=== PATIENT | female | born 1955 | race Caucasian/White ===

== ENCOUNTER 2017-04-06 11:17 | Emergency (ER) | payer MEDICARE ==
[2017-04-06 11:17] VITALS: BMI 21.5
[2017-04-06 11:57] VITALS: PULSE 79; RESP 18; TEMP 98; O2SAT 100
[2017-04-06] MEDS ORDERED: RISPERIDONE IM ONE ×2 (12:02→12:15)
--- NOTE | 2017-04-06 13:09 | CARD ---
APPROVED REPORT EKG Measurement Heart [id number] <Conclusion> Normal sinus rhythm Normal ECG
--- NOTE | 2017-04-06 13:13 | ED PDOC ---
HPI: General Adult Time Seen by Provider: 04/06/17 11:54 Chief Complaint (Nursing): Med Refill Chief Complaint (Provider): medication adminstration History Per: Patient History/Exam Limitations: no limitations Additional Complaint(s): 62yo f in ED for 3rd and final administration of risperadal 25Mg IM. dose and administration confirmed with MD Clint prescribing provider. PT will continue uoutpt f.u Past Medical History Reviewed: Historical Data, Nursing Documentation, Vital Signs Vital Signs: Last Vital Signs Temp 98 F 04/06/17 11:45 Pulse 79 04/06/17 11:45 Resp 18 04/06/17 11:45 BP Pulse Ox 100 04/06/17 11:45 - Medical History PMH: Depression, Paranoia, Schizophrenia Denies: Diabetes, Hepatitis, HIV, HTN, Chronic Kidney Disease, Seizures, Sexually Transmitted Disease - Surgical History Surgical History: (x2) - Family History Family History: States: Unknown Family Hx - Immunization History Hx Tetanus Toxoid Vaccination: No Hx Influenza Vaccination: No Hx Pneumococcal Vaccination: No - Home Medications Home Medications: Ambulatory Orders Medication Instructions Recorded Benztropine [Cogentin] 0.5 mg PO HS 30 Days #30 tab 03/19/17 Divalproex [Depakote DR(*BID*)] 500 mg PO BID 30 Days #60 tcp 03/19/17 Zolpidem [Ambien] 5 mg PO HS PRN #30 tab 03/19/17 risperiDONE [RisperDAL Tab] 3 mg PO HS 30 Days #30 tab 03/19/17 - Allergies Allergies/Adverse Reactions: Allergies Allergy/AdvReac Type Severity Reaction Status Date / Time No Known Allergies Allergy Unverified 03/26/13 09:43 Review of Systems ROS Statement: Except As Marked, All Systems Reviewed And Found Negative Constitutional: Negative for: Fever, Chills Psych: Negative for: Anxiety, Depression, Psychosis, Suicidal ideation Physical Exam - Reviewed Nursing Documentation Reviewed: Yes Vital Signs Reviewed: Yes - Physical Exam Appears: Positive for: Well, Non-toxic, No Acute Distress Skin: Positive for: Normal Color, Warm, DRY Eye Exam: Positive for: Normal appearance, EOMI, PERRL Cardiovascular/Chest: Positive for: Regular Rate, Rhythm Respiratory: Positive for: CNT, Normal Breath Sounds Back: Positive for: Normal Inspection Extremity: Positive for: Normal ROM Neurologic/Psych: Positive for: Alert, Oriented, Mood/Affect (normal affect) - ECG O2 Sat by Pulse Oximetry: 100 - Progress ED Course And Treament: PT has resperdal from home. sent to pharmacy for verification and administered to Pt by RN-witnessed by MLP Medical Decision Making Medical Decision Making: dx: medication administration pt advised tof/u with pmd no longer requires ED visits for risperdal IM ing Disposition - Clinical Impression Clinical Impression: Dependent for medication administration - Patient ED Disposition Is Patient to be Admitted: No Counseled Patient/Family Regarding: Need For Followup - Disposition Disposition: Routine/Home Disposition Time: 13:15 Condition: STABLE Instructions: Risperidone (By injection) Print Language: [id number]
== END 2017-04-06 13:34 | disposition home or self-care (01) ==
LOC: H.ER 11:17
DX: Z76.0 Encounter for issue of repeat prescription (principal); F20.9 Schizophrenia, unspecified; F32.9 Major depressive disorder, single episode, unspecified